=== PATIENT | female | born 1955 | race Caucasian/White ===

== ENCOUNTER 2017-01-01 09:37 | Day surgery (SDC) | payer BC, OTHER ==
[2016-12-28 16:04] VITALS: BMI 24.8
[~2017-01-01 09:37] MED LIST: LACTATED RINGERS 1,000 ML IV SCH
[2017-01-01 09:56] VITALS: TEMP 98.3
[2017-01-01 10:05] LABS: Glucose,Whole Blood 124 mg/dL (75-99)
[2017-01-01] MEDS ORDERED: MIDAZOLAM 2 MG/2 ML VIAL ONE (10:24)
[2017-01-01] MEDS ORDERED: PROPOFOL 10 MG/ML 20 ML VIAL IV ONE (10:24)
[2017-01-01] MEDS ORDERED: LIDOCAINE 1% INJ 10MG/ML (20 ML MDV) ONE (10:24)
--- NOTE | 2017-01-01 10:42 | P.GSHP ---
History of Present Illness H&P Date: 01/01/17 Chief Complaint: Screening colonoscopy This a 61-year-old female referred from Dr. Paulette myers. Patient presents today for screening colonoscopy. She denies a significant GI complaints. Past Medical History Past Medical History: Cancer, Diabetes Mellitus, Hypertension Additional Past Medical History / Comment(s): LEFT BREAST CA History of Any Multi-Drug Resistant Organisms: None Reported Past Surgical History: Bariatric Surgery, Section, Cholecystectomy Additional Past Surgical History / Comment(s): LAP BAND 2005, L MASTECTOMY, PANNICULECTOMY Past Anesthesia/Blood Transfusion Reactions: No Reported Reaction Smoking Status: Never smoker - Past Family History Mother Family Medical History: Cancer Additional Family Medical History / Comment(s): LUNG Sister(s) Family Medical History: Cancer Medications and Allergies Home Medications Medication Instructions Recorded Confirmed Type Cholecalciferol [Vitamin D3] 2,000 unit PO DAILY 11/25/13 01/01/17 History Letrozole [Femara] 2.5 mg PO DAILY 11/25/13 01/01/17 History Lisinopril [Zestril] 5 mg PO DAILY 11/25/13 01/01/17 History Multivitamins, Thera [Multivitamin] 1 each PO DAILY 11/25/13 01/01/17 History Simvastatin [Zocor] 20 mg PO TUTHSA 11/25/13 01/01/17 History glipiZIDE XL [Glucotrol XL] 5 mg PO BID 11/25/13 01/01/17 History Allergies Allergy/AdvReac Type Severity Reaction Status Date / Time No Known Allergies Allergy Verified 01/01/17 09:56 Surgical - Exam Vital Signs Temp Pulse Resp BP Pulse Ox 98.3 F 78 18 119/66 98 01/01/17 09:53 01/01/17 09:53 01/01/17 09:53 01/01/17 09:53 01/01/17 09:53 - General well developed, no distress - Eyes PERRL - ENT normal pinna - Neck no masses - Respiratory normal expansion - Cardiovascular Rhythm: regular - Abdomen Abdomen: soft, non tender Results - Labs Abnormal Lab Results - Last 24 Hours (Table) 01/01/17 Range/Units 10:01 POC Glucose (mg/dL) 124 H (75-99) mg/dL Assessment and Plan Plan: We'll perform screening colonoscopy.
--- NOTE | 2017-01-01 11:03 | P.OP ---
Date of Procedure: 01/01/17 Preoperative Diagnosis: Screening colonoscopy Postoperative Diagnosis: Mild diverticular changes Procedure(s) Performed: Colonoscopy Implants: Anesthesia: MAC Surgeon: Jluis Moreau Pathology: none sent Condition: stable Disposition: PACU Indications for Procedure: Operative Findings: Description of Procedure: Patient's placed on the endoscopy table in the lateral position. She received IV sedation. Digital rectal exam was performed which revealed no abnormalities. Possible colonoscope was then placed patient anus passed throughout the entire colon. The ileocecal valve was visually is. The cecum, ascending and transverse colon appeared normal. The descending; mild diverticular changes. There is no evidence of diverticulitis. Scope summer back the rectum and this appeared normal. Scope was withdrawn for patient.
[2017-01-01 11:42] VITALS: BP 108/51; PULSE 65; RESP 16
== END 2017-01-01 11:57 | disposition home or self-care (01) ==
LOC: ORWHC2ENDO 09:37
PROVIDERS: ATTEND Surgery
DX: Z12.11 Encounter for screening for malignant neoplasm of colon (principal); K57.30 Diverticulosis of large intestine without perforation or abscess without bleeding; E11.9 Type 2 diabetes mellitus without complications; Z79.84 Long term (current) use of oral hypoglycemic drugs; Z98.84 Bariatric surgery status; I10 Essential (primary) hypertension; Z85.3 Personal history of malignant neoplasm of breast; Z79.811 Long term (current) use of aromatase inhibitors; Z79.899 Other long term (current) drug therapy
CPT/HCPCS: J2250; J2001; J2704; G0121

== ENCOUNTER 2021-04-17 08:40 | Day surgery (SDC) | payer BC, MEDICARE, OTHER ==
[2021-04-12 14:34] VITALS: BMI 23.1
[2021-04-17 09:47] LABS: Glucose,Whole Blood 142 mg/dL (75-99)
[2021-04-17 09:49] VITALS: TEMP 98.7
[2021-04-17] MEDS ORDERED: LIDOCAINE 1% INJ 10MG/ML (20 ML MDV) ONE (10:29)
[2021-04-17] MEDS ORDERED: PROPOFOL 10 MG/ML 20 ML VIAL IV ONE (10:29)
--- NOTE | 2021-04-17 10:33 | P.GSHP ---
History of Present Illness H&P Date: 04/17/21 Chief Complaint: Anemia 65-year-old female presents with anemia. Patient presents today for EGD and colonoscopy for GI workup Past Medical History Past Medical History: Cancer, Diabetes Mellitus, Hyperlipidemia, Hypertension Additional Past Medical History / Comment(s): LEFT BREAST CA History of Any Multi-Drug Resistant Organisms: None Reported Past Surgical History: Bariatric Surgery, Breast Surgery, Section, Cholecystectomy Additional Past Surgical History / Comment(s): LAP BAND 2005, L MASTECTOMY, PANNICULECTOMY, COLONOSCOPY, EGD Past Anesthesia/Blood Transfusion Reactions: Motion Sickness Smoking Status: Never smoker - Past Family History Mother Family Medical History: Cancer Additional Family Medical History / Comment(s): LUNG Sister(s) Family Medical History: Cancer Medications and Allergies Home Medications Medication Instructions Recorded Confirmed Type Cholecalciferol [Vitamin D3] 2,000 unit PO DAILY 11/25/13 04/12/21 History Letrozole [Femara] 2.5 mg PO DAILY 11/25/13 04/12/21 History Multivitamins, Thera [Multivitamin] 1 each PO DAILY 11/25/13 04/12/21 History Simvastatin [Zocor] 20 mg PO MOWEFR 11/25/13 04/12/21 History glipiZIDE XL [Glucotrol XL] 5 mg PO QAM 11/25/13 04/12/21 History lisinopriL [Zestril] 5 mg PO DAILY 11/25/13 04/12/21 History Pioglitazone [Actos] 30 mg PO DAILY 04/12/21 04/12/21 History glipiZIDE [Glucotrol] 5 mg PO DAILY@1700 04/12/21 04/12/21 History Allergies Allergy/AdvReac Type Severity Reaction Status Date / Time No Known Allergies Allergy Verified 04/17/21 09:30 Surgical - Exam Vital Signs Temp Pulse Resp BP Pulse Ox 98.7 F 87 16 132/58 99 04/17/21 09:47 04/17/21 09:47 04/17/21 09:47 04/17/21 09:47 04/17/21 09:47 - General well developed, well nourished, no distress - Eyes PERRL - ENT normal pinna - Neck no masses - Respiratory normal expansion - Cardiovascular Rhythm: regular - Abdomen Abdomen: soft, non tender Results - Labs Abnormal Lab Results - Last 24 Hours (Table) 04/17/21 Range/Units 09:45 POC Glucose (mg/dL) 142 H (75-99) mg/dL Assessment and Plan Assessment: Anemia. We'll perform EGD and colonoscopy
--- NOTE | 2021-04-17 10:49 | P.OP ---
Date of Procedure: 04/17/21 Preoperative Diagnosis: Anemia Postoperative Diagnosis: Antral gastritis No evidence of upper GI bleed Anesthesia: KEYSHAWN Surgeon: Jluis Moreau Pathology: other (Antrum) Condition: stable Disposition: PACU Description of Procedure: The patient's placed on the endoscopy table in the lateral position. She received IV sedation. The gastroscope placed oropharynx passed in the esophagus. Scope was then placed through the pylorus. The first and second portion of the duodenum appeared normal. Scope was then brought back the antrum was mildly inflamed. Biopsies performed. Scope was unretroflexed and remainder of the stomach appeared normal. Patient had a previously placed LAP-BAND device this without evidence of erosion or inflammation. The GE junction was at 40 cm the distal esophagus appeared normal. The proximal esophagus appeared normal. Scope was withdrawn for patient. Next digital rectal exam was performed, this revealed no abnormalities. There is a large amount liquid stool in the rectum. The flexible colonoscope was then placed patient anus passed throughout the scope passed into the right colon sec ondary to a large amount of liquid stool. The prep was quite poor. The colonoscope was withdrawn. The transverse colon appeared normal the descending colon and sigmoid colon appeared normal. However it was a limited view of the mucosa due to the poor prep. There is a large amount liquid stool. Scope was brought back the rectum and this appeared normal. Scope withdrawn for patient.
[2021-04-17 11:08] VITALS: BP 110/78; PULSE 78; RESP 18
== END 2021-04-17 11:37 | disposition home or self-care (01) ==
LOC: ORWHC2ENDO 08:40
PROVIDERS: ATTEND Surgery
DX: K29.50 Unspecified chronic gastritis without bleeding (principal); D50.9 Iron deficiency anemia, unspecified; E11.9 Type 2 diabetes mellitus without complications; E78.5 Hyperlipidemia, unspecified; I10 Essential (primary) hypertension; Z85.3 Personal history of malignant neoplasm of breast; Z98.84 Bariatric surgery status; Z98.891 History of uterine scar from previous surgery; Z90.49 Acquired absence of other specified parts of digestive tract; Z90.12 Acquired absence of left breast and nipple; Z98.890 Other specified postprocedural states; Z80.1 Family history of malignant neoplasm of trachea, bronchus and lung; Z79.84 Long term (current) use of oral hypoglycemic drugs; Z79.899 Other long term (current) drug therapy
CPT/HCPCS: 88305; 45378; 43239; J2001; J2704

== ENCOUNTER → 2022-06-08 | Outpatient (CLI) | payer MEDICARE ==
[2022-06-08 11:13] VITALS: BP 117/76; PULSE 85; RESP 12; TEMP 98; BMI 23.1
--- NOTE | 2022-06-08 11:34 | FL ---
EXAMINATION TYPE: FL barium swallow DATE OF EXAM: 06/08/2022 COMPARISON: None HISTORY: Dysphasia TECHNIQUE: A single contrast Limited esophagram study is performed. FINDINGS: Fluoroscopy time: 2 minutes 22 seconds. Images: 20 Lap band is in a normal position. Following contrast there is marked chest CT of contrast passing thr ough the lap band. There is a collection of contrast which passes over and adjacent to the lap band a ppears to go into the stomach. Fistula adjacent to the lap band may be present. Findings best demonst rated image 14 of 20. AP upright overhead radiograph also demonstrates the findings. Contrast eventua lly passes through the lap band into the stomach. Report was called and case discussed with Dr. Moreau by Dr. Paulson by telephone at 1130 hours. IMPRESSIONS: 1. Marked hesitancy of contrast passing through the lap band. 2. Recommend evaluation for fistula formation superior and lateral to the lap band.
--- NOTE | 2022-06-08 11:50 | P.HPBAR ---
Bariatric H&P - History & Physicial H&P Date: 06/08/22 History & Physicial: Visit/CC: nausea/vomiting Patient initial contact: Initial weight: Initial weight in pounds: Height: 5 ft 8.5 in Initial BMI: Last weight: Current weight: 69.853 kg Current weight in pounds: 154.00 Current BMI: 23.1 [place] body weight (based on NIH guidelines): 64.637 kg Excess body weight loss: The patient is a 66 year-old F who presents for Bariatric Assessment. Patient presents today for LAP-BAND follow-up. Patient's had complaints of some dysphagia last month. She denies any significant epigastric pain. Past Medical History Past Medical History: Cancer, Diabetes Mellitus, Hyperlipidemia, Hypertension Additional Past Medical History / Comment(s): LEFT BREAST CA History of Any Multi-Drug Resistant Organisms: None Reported Past Surgical History: Bariatric Surgery, Breast Surgery, Section, Cholecystectomy Additional Past Surgical History / Comment(s): LAP BAND 2004, MASTECTOMY, PANNICULECTOMY, COLONOSCOPY, EGD Past Anesthesia/Blood Transfusion Reactions: Motion Sickness Past Psychological History: No Psychological Hx Reported Smoking Status: Never smoker Past Alcohol Use History: None Reported Past Drug Use History: None Reported - Past Family History Mother Family Medical History: Cancer Additional Family Medical History / Comment(s): LUNG Sister(s) Family Medical History: Cancer Surgical - Exam Vital Signs Temp Pulse Resp BP 98 F 85 12 117/76 06/08/22 10:59 06/08/22 10:59 06/08/22 10:59 06/08/22 10:59 - General well developed, well nourished, no distress - Eyes PERRL - ENT normal pinna - Neck no masses - Respiratory normal expansion - Cardiovascular Rhythm: regular - Abdomen Abdomen: soft, non tender Bariatric Assessment & Plan Plan: Patient LAP-BAND was empty. She had 2.5 mL removed from her band. Patient was sent for an esophagram. Esophagram suspicious for a gastric erosion. There appears to be contrast going around the band. There is no extravasation of contrast. Patient will be scheduled for EGD on Saturday. She'll remain on clear liquids. Bariatric Checklist Checklist: Plan: Checklist: EGD: 1. Hiatal hernia: 2. H. Pylori: HgbA1c: Vitamin D: Smoking: Never smoker Primary care physician referral: Psychiatry clearance: Cardiology clearance: Sleep study: Diet journal: VTE risk score: VTE risk level: Rehab needs at discharge:
== END ==
LOC: BARWHC3 09:47
PROVIDERS: ATTEND Surgery
DX: R13.10 Dysphagia, unspecified (principal); E66.01 Morbid (severe) obesity due to excess calories; Z68.23 Body mass index [BMI] 23.0-23.9, adult
CPT/HCPCS: 74220; G0463; 99212

== ENCOUNTER 2022-06-11 11:32 | Day surgery (SDC) | payer MEDICARE ==
[2022-06-08 13:52] VITALS: BMI 23.4
[2022-06-11] MEDS ORDERED: LACTATED RINGERS 1,000 ML IV ONE (12:08)
[2022-06-11 12:16] VITALS: TEMP 97.4
[2022-06-11 12:20] LABS: Glucose,Whole Blood 157 mg/dL (70-110)
[2022-06-11] MEDS ORDERED: PROPOFOL 10 MG/ML 20 ML VIAL IV ONE (12:45)
[2022-06-11] MEDS ORDERED: LIDOCAINE 2% INJ 20 MG/ML (2 ML VIAL) ONE (12:45)
--- NOTE | 2022-06-11 12:48 | P.GSHP ---
History of Present Illness H&P Date: 06/11/22 Chief Complaint: Epigastric pain This is a 1-year-old female. History of LAP-BAND. Patient has some dysphagia recently. Her LAP-BAND was empty. Her esophagram is suspicious for a gastric erosion. She presents today for EGD. Past Medical History Past Medical History: Cancer, Diabetes Mellitus, Hyperlipidemia, Hypertension, Osteoarthritis (OA) Additional Past Medical History / Comment(s): LEFT BREAST CA History of Any Multi-Drug Resistant Organisms: None Reported Past Surgical History: Bariatric Surgery, Breast Surgery, Section, Cholecystectomy Additional Past Surgical History / Comment(s): LAP BAND 2004, MASTECTOMY, PANNICULECTOMY, COLONOSCOPY, EGD Past Anesthesia/Blood Transfusion Reactions: Motion Sickness Past Psychological History: No Psychological Hx Reported Smoking Status: Never smoker Past Alcohol Use History: Rare Past Drug Use History: None Reported - Past Family History Mother Family Medical History: Cancer Additional Family Medical History / Comment(s): LUNG Sister(s) Family Medical History: Cancer Additional Family Medical History / Comment(s): abdominal mall Brother(s) Family Medical History: Cancer Additional Family Medical History / Comment(s): tongue and pancreatic Medications and Allergies Home Medications Medication Instructions Recorded Confirmed Type Cholecalciferol [Vitamin D3] 2,000 unit PO DAILY 11/25/13 06/11/22 History Multivitamins, Thera [Multivitamin] 1 each PO DAILY 11/25/13 06/11/22 History Simvastatin [Zocor] 20 mg PO MOWEFR 11/25/13 06/11/22 History glipiZIDE XL [Glucotrol XL] 5 mg PO QAM 11/25/13 06/11/22 History lisinopriL [Zestril] 5 mg PO DAILY 11/25/13 06/11/22 History glipiZIDE [Glucotrol] 10 mg PO DAILY@1700 04/12/21 06/11/22 History Allergies Allergy/AdvReac Type Severity Reaction Status Date / Time No Known Allergies Allergy Verified 06/11/22 11:52 Surgical - Exam Vital Signs Temp Pulse Resp BP Pulse Ox 97.4 F L 80 16 124/66 100 06/11/22 11:51 06/11/22 11:51 06/11/22 11:51 06/11/22 11:51 06/11/22 11:51 - General well developed, well nourished, no distress - Eyes PERRL - ENT normal pinna - Neck no masses - Respiratory normal expansion - Cardiovascular Rhythm: regular - Abdomen Abdomen: soft, non tender Results - Labs Abnormal Lab Results - Last 24 Hours (Table) 06/11/22 Range/Units 12:08 POC Glucose (mg/dL) 157 H (70-110) mg/dL Assessment and Plan Assessment: History of epigastric pain. Possible gastric erosion of LAP-BAND. Patient undergo EGD.
--- NOTE | 2022-06-11 12:55 | P.OP ---
Date of Procedure: 06/11/22 Preoperative Diagnosis: Epigastric abdominal pain Postoperative Diagnosis: Antral gastritis No evidence of LAP-BAND erosion Procedure(s) Performed: EGD Anesthesia: MAC Surgeon: Jluis Moreau Pathology: other (Antrum) Condition: stable Disposition: PACU Description of Procedure: The patient was placed on the endoscopy table in the lateral position. She received IV sedation. The gastroscope was placed oropharynx past esophagus and stomach. Scope was placed through the pylorus. The first and second portion of the duodenum appeared normal. Scope was then brought back to the pylorus. The antrum was minimal inflamed. A biopsies performed. Scope was unretroflexed and remainder. The gastric plication was inspected. There is no evidence of LAP- BAND erosion. The GE junction was at 40 cm per the distal esophagus appeared normal. The proximal esophagus appeared normal. Scope withdrawn for patient.
[2022-06-11 13:00] VITALS: BP 124/70; PULSE 77; RESP 12
== END 2022-06-11 14:10 | disposition home or self-care (01) ==
LOC: ORWHC2ENDO 11:32
PROVIDERS: ATTEND Surgery
DX: K21.9 Gastro-esophageal reflux disease without esophagitis (principal); E11.9 Type 2 diabetes mellitus without complications; I10 Essential (primary) hypertension; E78.5 Hyperlipidemia, unspecified; M19.90 Unspecified osteoarthritis, unspecified site; Z85.3 Personal history of malignant neoplasm of breast; Z90.49 Acquired absence of other specified parts of digestive tract; Z98.84 Bariatric surgery status
CPT/HCPCS: 43239; J2704; J2001; 88305; 88342

== ENCOUNTER → 2022-11-05 | Outpatient (CLI) | payer MEDICARE ==
[2022-11-05 14:03] VITALS: BP 145/77; PULSE 84; TEMP 97.9; BMI 30.7
--- NOTE | 2022-11-27 11:45 | P.HPBAR ---
Bariatric H&P - History & Physicial H&P Date: 11/05/22 History & Physicial: Visit/CC: lap band F/U Patient initial contact: Initial weight: Initial weight in pounds: Height: 5 ft 8.5 in Initial BMI: Last weight: Current weight: 92.986 kg Current weight in pounds: 205.00 Current BMI: 30.7 [place] body weight (based on NIH guidelines): 64.637 kg Excess body weight loss: The patient is a 66 year-old F who presents for Bariatric Assessment. Patient presents today for Moran follow-up. She's not been seen some time. Patient has had increased hunger. She is requesting a fill. She is gained 50 pounds since her last visit. Past Medical History Past Medical History: Cancer, Diabetes Mellitus, Hyperlipidemia, Hypertension, Osteoarthritis (OA) Additional Past Medical History / Comment(s): LEFT BREAST CA History of Any Multi-Drug Resistant Organisms: None Reported Past Surgical History: Bariatric Surgery, Breast Surgery, Section, Cholecystectomy Additional Past Surgical History / Comment(s): LAP BAND 2004, MASTECTOMY, PANNICULECTOMY, COLONOSCOPY, EGD Past Anesthesia/Blood Transfusion Reactions: Motion Sickness Past Psychological History: No Psychological Hx Reported Smoking Status: Never smoker Past Alcohol Use History: Rare Past Drug Use History: None Reported - Past Family History Mother Family Medical History: Cancer Additional Family Medical History / Comment(s): LUNG Sister(s) Family Medical History: Cancer Additional Family Medical History / Comment(s): abdominal mall Brother(s) Family Medical History: Cancer Additional Family Medical History / Comment(s): tongue and pancreatic Surgical - Exam Vital Signs Temp Pulse BP 97.9 F 84 145/77 11/05/22 13:59 11/05/22 13:59 11/05/22 13:59 - General well developed, well nourished, no distress - Eyes PERRL - ENT normal pinna - Neck no masses - Respiratory normal expansion - Cardiovascular Rhythm: regular - Abdomen Abdomen: soft, non tender Bariatric Assessment & Plan Plan: Patient LAP-BAND was adjusted. She had 2 mL added. She'll follow-up in 4 weeks. Bariatric Checklist Checklist: Plan: Checklist: EGD: 1. Hiatal hernia: 2. H. Pylori: HgbA1c: Vitamin D: Smoking: Never smoker Primary care physician referral: Dr. Yoon Psychiatry clearance: Cardiology clearance: Sleep study: Diet journal: VTE risk score: VTE risk level: Rehab needs at discharge:
== END ==
LOC: BARWHC3 13:21
PROVIDERS: ATTEND Surgery
DX: E66.01 Morbid (severe) obesity due to excess calories (principal); Z46.51 Encounter for fitting and adjustment of gastric lap band; E11.9 Type 2 diabetes mellitus without complications; E78.5 Hyperlipidemia, unspecified; I10 Essential (primary) hypertension; M19.90 Unspecified osteoarthritis, unspecified site; Z68.30 Body mass index [BMI] 30.0-30.9, adult
CPT/HCPCS: 99212

== ENCOUNTER → 2022-12-10 | Outpatient (CLI) | payer MEDICARE ==
[2022-12-10 14:04] VITALS: BP 133/72; PULSE 79; TEMP 97.9; BMI 29.0
--- NOTE | 2023-01-01 08:26 | P.HPBAR ---
Bariatric H&P - History & Physicial H&P Date: 12/10/22 History & Physicial: Visit/CC: lap band Patient initial contact: Initial weight: Initial weight in pounds: Height: 5 ft 8.5 in Initial BMI: Last weight: Current weight: 87.997 kg Current weight in pounds: 194.00 Current BMI: 29.0 [place] body weight (based on NIH guidelines): 64.637 kg Excess body weight loss: The patient is a 67 year-old F who presents for Bariatric Assessment. Patient presents today for LAP-BAND adjustment. Patient is requesting a fill of her band. She currently feels hungry. Past Medical History Past Medical History: Cancer, Diabetes Mellitus, Hyperlipidemia, Hypertension, Osteoarthritis (OA) Additional Past Medical History / Comment(s): LEFT BREAST CA History of Any Multi-Drug Resistant Organisms: None Reported Past Surgical History: Bariatric Surgery, Breast Surgery, Section, Cholecystectomy Additional Past Surgical History / Comment(s): LAP BAND 2004, MASTECTOMY, PANNICULECTOMY, COLONOSCOPY, EGD Past Anesthesia/Blood Transfusion Reactions: Motion Sickness Past Psychological History: No Psychological Hx Reported Smoking Status: Never smoker Past Alcohol Use History: Rare Past Drug Use History: None Reported - Past Family History Mother Family Medical History: Cancer Additional Family Medical History / Comment(s): LUNG Sister(s) Family Medical History: Cancer Additional Family Medical History / Comment(s): abdominal mall Brother(s) Family Medical History: Cancer Additional Family Medical History / Comment(s): tongue and pancreatic Surgical - Exam Vital Signs Temp Pulse BP 97.9 F 79 133/72 12/10/22 14:01 12/10/22 14:01 12/10/22 14:01 - General well developed, well nourished, no distress - Abdomen Abdomen: soft, non tender Bariatric Assessment & Plan Plan: Patient LAP-BAND was adjusted she had 0.5 mL added to the band. She is 2.5 mL in the band. She will follow-up in 4 weeks. Bariatric Checklist Checklist: Plan: Checklist: EGD: 1. Hiatal hernia: 2. H. Pylori: HgbA1c: Vitamin D: Smoking: Never smoker Primary care physician referral: Dr. Yoon Psychiatry clearance: Cardiology clearance: Sleep study: Diet journal: VTE risk score: VTE risk level: Rehab needs at discharge:
== END ==
LOC: BARWHC3 13:22
PROVIDERS: ATTEND Surgery
DX: E66.01 Morbid (severe) obesity due to excess calories (principal); Z46.51 Encounter for fitting and adjustment of gastric lap band; E11.9 Type 2 diabetes mellitus without complications; E78.5 Hyperlipidemia, unspecified; I10 Essential (primary) hypertension; M19.90 Unspecified osteoarthritis, unspecified site; Z68.29 Body mass index [BMI] 29.0-29.9, adult
CPT/HCPCS: 99212

== ENCOUNTER → 2023-01-07 | Outpatient (CLI) | payer MEDICARE ==
[2023-01-07 11:04] VITALS: BP 130/76; PULSE 78; TEMP 98; BMI 26.9
--- NOTE | 2023-01-07 15:32 | P.HPBAR ---
Bariatric H&P - History & Physicial H&P Date: 01/07/23 History & Physicial: Visit/CC: lap band adj Patient initial contact: Initial weight: Initial weight in pounds: Height: 5 ft 8.5 in Initial BMI: Last weight: Current weight: 81.692 kg Current weight in pounds: 180.10 Current BMI: 26.9 [place] body weight (based on NIH guidelines): 64.637 kg Excess body weight loss: The patient is a 67 year-old F who presents for Bariatric Assessment. Patient's complaints of dysphagia is requesting fluid removed from her band. Past Medical History Past Medical History: Cancer, Diabetes Mellitus, Hyperlipidemia, Hypertension, Osteoarthritis (OA) Additional Past Medical History / Comment(s): LEFT BREAST CA History of Any Multi-Drug Resistant Organisms: None Reported Past Surgical History: Bariatric Surgery, Breast Surgery, Section, Cholecystectomy Additional Past Surgical History / Comment(s): LAP BAND 2004, MASTECTOMY, PANNICULECTOMY, COLONOSCOPY, EGD Past Anesthesia/Blood Transfusion Reactions: Motion Sickness Smoking Status: Never smoker - Past Family History Mother Family Medical History: Cancer Additional Family Medical History / Comment(s): LUNG Sister(s) Family Medical History: Cancer Additional Family Medical History / Comment(s): abdominal mall Brother(s) Family Medical History: Cancer Additional Family Medical History / Comment(s): tongue and pancreatic Surgical - Exam Vital Signs Temp Pulse BP 98.0 F 78 130/76 01/07/23 10:57 01/07/23 10:57 01/07/23 10:57 - General well developed, well nourished, no distress - Eyes PERRL - ENT normal pinna - Neck no masses - Respiratory normal expansion - Cardiovascular Rhythm: regular - Abdomen Abdomen: soft, non tender Bariatric Assessment & Plan Plan: 0.5 mL was removed the band. Patient was able to drink water without difficulty. Bariatric Checklist Checklist: Plan: Checklist: EGD: 1. Hiatal hernia: 2. H. Pylori: HgbA1c: Vitamin D: Smoking: Never smoker Primary care physician referral: Dr. Yoon Psychiatry clearance: Cardiology clearance: Sleep study: Diet journal: VTE risk score: VTE risk level: Rehab needs at discharge:
== END ==
LOC: BARWHC3 10:52
PROVIDERS: ATTEND Surgery
DX: E66.01 Morbid (severe) obesity due to excess calories (principal); E11.9 Type 2 diabetes mellitus without complications; E78.5 Hyperlipidemia, unspecified; I10 Essential (primary) hypertension; Z85.3 Personal history of malignant neoplasm of breast; Z46.51 Encounter for fitting and adjustment of gastric lap band; Z68.27 Body mass index [BMI] 27.0-27.9, adult; Z79.899 Other long term (current) drug therapy; Z79.84 Long term (current) use of oral hypoglycemic drugs
CPT/HCPCS: 99212

== ENCOUNTER → 2023-03-11 | Outpatient (CLI) | payer MEDICARE ==
[2023-03-11 13:08] VITALS: BP 124/70; PULSE 86; TEMP 97.7; BMI 26.5
--- NOTE | 2023-03-27 09:18 | P.HPBAR ---
Bariatric H&P - History & Physicial H&P Date: 03/11/23 History & Physicial: Visit/CC: lap band Patient initial contact: Initial weight: Initial weight in pounds: Height: 5 ft 8.5 in Initial BMI: Last weight: Current weight: 80.286 kg Current weight in pounds: 177.00 Current BMI: 26.5 [place] body weight (based on NIH guidelines): 64.637 kg Excess body weight loss: The patient is a 67 year-old F who presents for Bariatric Assessment. Patient rents today for Moran follow-up. She has some minimal GERD. She feels that her weight loss has been good. She denies any significant dysphagia. She's lost 3 pounds since her last visit. Past Medical History Past Medical History: Cancer, Diabetes Mellitus, Hyperlipidemia, Hypertension, Osteoarthritis (OA) Additional Past Medical History / Comment(s): LEFT BREAST CA History of Any Multi-Drug Resistant Organisms: None Reported Past Surgical History: Bariatric Surgery, Breast Surgery, Section, Cholecystectomy Additional Past Surgical History / Comment(s): LAP BAND 2004, MASTECTOMY, PANNICULECTOMY, COLONOSCOPY, EGD Past Anesthesia/Blood Transfusion Reactions: Motion Sickness Past Psychological History: No Psychological Hx Reported Smoking Status: Never smoker Past Alcohol Use History: Rare Past Drug Use History: None Reported - Past Family History Mother Family Medical History: Cancer Additional Family Medical History / Comment(s): LUNG Sister(s) Family Medical History: Cancer Additional Family Medical History / Comment(s): abdominal mall Brother(s) Family Medical History: Cancer Additional Family Medical History / Comment(s): tongue and pancreatic Surgical - Exam Vital Signs Temp Pulse BP 97.7 F 86 124/70 03/11/23 13:03 03/11/23 13:03 03/11/23 13:03 - General well developed, well nourished, no distress - Eyes PERRL - ENT normal pinna - Abdomen Abdomen: soft, non tender Bariatric Assessment & Plan Plan: Patient's GERD is minimal will be observed. She'll follow-up in 4 weeks. Bariatric Checklist Checklist: Plan: Checklist: EGD: 1. Hiatal hernia: 2. H. Pylori: HgbA1c: Vitamin D: Smoking: Never smoker Primary care physician referral: Dr. Yoon Psychiatry clearance: Cardiology clearance: Sleep study: Diet journal: VTE risk score: VTE risk level: Rehab needs at discharge:
== END ==
LOC: BARWHC3 09:05
PROVIDERS: ATTEND Surgery
DX: K21.9 Gastro-esophageal reflux disease without esophagitis (principal); E11.9 Type 2 diabetes mellitus without complications; I10 Essential (primary) hypertension; E78.5 Hyperlipidemia, unspecified; M19.90 Unspecified osteoarthritis, unspecified site; Z85.3 Personal history of malignant neoplasm of breast; Z98.84 Bariatric surgery status; Z79.899 Other long term (current) drug therapy; Z79.84 Long term (current) use of oral hypoglycemic drugs
CPT/HCPCS: 99211

== ENCOUNTER → 2023-05-27 | Outpatient (CLI) | payer MEDICARE ==
[2023-05-27 14:22] VITALS: BMI 25.7
--- NOTE | 2023-08-13 11:44 | P.HPBAR ---
Bariatric H&P - History & Physicial H&P Date: 05/27/23 History & Physicial: Visit/CC: lap band Patient initial contact: Initial weight: Initial weight in pounds: Height: 5 ft 8.5 in Initial BMI: Last weight: Current weight: 78.018 kg Current weight in pounds: 172.00 Current BMI: 25.7 [place] body weight (based on NIH guidelines): 64.637 kg Excess body weight loss: The patient is a 67 year-old F who presents for Bariatric Assessment. Patient presents today for Lap-Band follow-up. She states she is in a good zone. She has had minimal gerd. Past Medical History Past Medical History: Cancer, Diabetes Mellitus, Hyperlipidemia, Hypertension, Osteoarthritis (OA) Additional Past Medical History / Comment(s): LEFT BREAST CA History of Any Multi-Drug Resistant Organisms: None Reported Past Surgical History: Bariatric Surgery, Breast Surgery, Section, Cholecystectomy Additional Past Surgical History / Comment(s): LAP BAND 2004, MASTECTOMY, PANNICULECTOMY, COLONOSCOPY, EGD Past Anesthesia/Blood Transfusion Reactions: Motion Sickness Past Psychological History: No Psychological Hx Reported Smoking Status: Never smoker Past Alcohol Use History: Rare Past Drug Use History: None Reported - Past Family History Mother Family Medical History: Cancer Additional Family Medical History / Comment(s): LUNG Sister(s) Family Medical History: Cancer Additional Family Medical History / Comment(s): abdominal mall Brother(s) Family Medical History: Cancer Additional Family Medical History / Comment(s): tongue and pancreatic Surgical - Exam - General well developed, well nourished - Eyes PERRL - Abdomen Abdomen: soft, non tender Bariatric Assessment & Plan Plan: Patient is doing well. Her gerd is minimal loser. She will follow-up in 3 months. Bariatric Checklist Checklist: Plan: Checklist: EGD: 1. Hiatal hernia: 2. H. Pylori: HgbA1c: Vitamin D: Smoking: Never smoker Primary care physician referral: Dr. Yoon Psychiatry clearance: Cardiology clearance: Sleep study: Diet journal: VTE risk score: VTE risk level: Rehab needs at discharge:
== END ==
LOC: BARWHC3 11:45
PROVIDERS: ATTEND Surgery
DX: Z53.9 Procedure and treatment not carried out, unspecified reason (principal)
CPT/HCPCS: 99211

== ENCOUNTER → 2023-05-30 | Outpatient (CLI) | payer MEDICARE ==
--- NOTE | 2023-06-02 18:20 | MM ---
Reason for Exam: Screening (asymptomatic). Last mammogram was performed 1 year(s) and 3 month(s) ago. Patient History: Menarche at age 12. First Full-Term at age 16. Postmenopausal. 2011, Mastectomy on the Left side. Maternal aunt had breast cancer, age 40. Risk Values: Lynda 5 year model risk: 1.1%. NCI Lifetime model risk: 3.5%. Tissue Density: Right: There are scattered fibroglandular densities. Findings: Analyzed By CAD. Comparison exams back to 2019. Unchanged inferior terminal calcifications, axillary tail lymph node, and anterior asymmetric density on the MLO view. No significant change from prior exams. Overall Assessment: Benign, BI-RAD 2 Management: Screening Mammogram of the right breast in 1 year. . Patient should continue monthly self-breast exams. A clinical breast exam by your physician is recommended on an annual basis. This exam should not preclude additional follow-up of suspicious palpable abnormalities. Note on Lynda scores and lifetime risk: 1. A Lynda score greater than 3% is considered moderate risk. If this is the case, consider specialist referral to assess eligibility for a risk reducing agent. 2. If overall lifetime risk for the development of breast cancer is 20% or higher, the patient may qualify for future screening with alternating mammogram and breast MRI. Electronically signed and approved by: Fátima Mercado M.D. Radiologist
== END | disposition home or self-care (01) ==
LOC: RADMAMWWP 08:05
PROVIDERS: ATTEND Internal Medicine Hematology & Oncology
DX: Z12.31 Encounter for screening mammogram for malignant neoplasm of breast (principal); Z78.0 Asymptomatic menopausal state; Z80.3 Family history of malignant neoplasm of breast
CPT/HCPCS: 77067

== ENCOUNTER → 2023-11-25 | Outpatient (CLI) | payer MEDICARE ==
[2023-11-25 13:25] VITALS: BP 117/67; PULSE 82; RESP 14; TEMP 98.1; BMI 25.3
--- NOTE | 2023-11-26 09:38 | P.HPBAR ---
Bariatric H&P - History & Physicial H&P Date: 11/25/23 History & Physicial: Visit/CC: follow up Patient initial contact: Initial weight: Initial weight in pounds: Height: 5 ft 8.5 in Initial BMI: Last weight: Current weight: 76.657 kg Current weight in pounds: 169.00 Current BMI: 25.3 [place] body weight (based on NIH guidelines): 64.637 kg Excess body weight loss: The patient is a 67 year-old F who presents for Bariatric Assessment.patient presents today for bariatric follow-up. She's had minimal complaints of GERD. Her weight is remain stable. She's lost 3 pounds her last visit. Past Medical History Past Medical History: Cancer, Diabetes Mellitus, Hyperlipidemia, Hypertension, Osteoarthritis (OA) Additional Past Medical History / Comment(s): LEFT BREAST CA History of Any Multi-Drug Resistant Organisms: None Reported Past Surgical History: Bariatric Surgery, Breast Surgery, Section, Cholecystectomy Additional Past Surgical History / Comment(s): LAP BAND 2004, L MASTECTOMY, PANNICULECTOMY, COLONOSCOPY, EGD Past Anesthesia/Blood Transfusion Reactions: Motion Sickness Past Psychological History: No Psychological Hx Reported Smoking Status: Never smoker Past Alcohol Use History: Rare Past Drug Use History: None Reported - Past Family History Mother Family Medical History: Cancer Additional Family Medical History / Comment(s): LUNG Sister(s) Family Medical History: Cancer Additional Family Medical History / Comment(s): abdominal mall Brother(s) Family Medical History: Cancer Additional Family Medical History / Comment(s): tongue and pancreatic Surgical - Exam Vital Signs Temp Pulse Resp BP 98.1 F 82 14 117/67 11/25/23 10:00 11/25/23 10:00 11/25/23 10:11/25/23 10:00 - General well developed, well nourished, no distress - Eyes PERRL - ENT normal pinna - Neck no masses - Respiratory normal expansion - Cardiovascular Rhythm: regular - Abdomen Abdomen: soft, non tender Bariatric Assessment & Plan Plan: status post lap band to sleeve conversion. Patient did well. Her GERD is minimal and will be observed. She'll follow-up in 4 weeks. Bariatric Checklist Checklist: Plan: Checklist: EGD: 1. Hiatal hernia: 2. H. Pylori: HgbA1c: Vitamin D: Smoking: Never smoker Primary care physician referral: Dr. Yoon Psychiatry clearance: Cardiology clearance: Sleep study: Diet journal: VTE risk score: VTE risk level: Rehab needs at discharge:
== END ==
LOC: BARWHC3 08:21
PROVIDERS: ATTEND Surgery
DX: K21.9 Gastro-esophageal reflux disease without esophagitis (principal); Z98.84 Bariatric surgery status
CPT/HCPCS: 99211